=== PATIENT | female | born 1950 | race Caucasian/White ===

== ENCOUNTER → 2017-10-28 | Outpatient (CLI) | payer MEDICARE, OTHER ==
[~2017-10-28] MED LIST: AMITRIPTYLINE H50 M2 PO; ASPIRIN EC325 M1 PO; ATIVAN0.5 MG PO; AVELOX 400 MG400 MG; BENADRYL ALLE12.5 M1 PO; CRESTOR20 MG PO; LOSARTAN-HCTZ1 EAC2 PO; OXYIR5 MG PO; PERCOCET 5-3251 EACH PO; PROTONIX40 M2 PO; SYNTHROID150 MCG PO
--- NOTE | 2017-10-28 13:34 | 2DMMODE ---
[place] [address] 2 D/M-MODE ECHOCARDIOGRAM Name: SAGE DONOVAN Room: [facility]#: [id number] Admission: 10/28/17 Attend Phys: Physician not on s Discharge: Date of : 50 Date of Service: 10/28/17 1334 Report #: [id number] THIS REPORT FOR: //name// APPROVED REPORT Study performed: 10/28/2017 11:39:09 EXAM: Comprehensive 2D, Doppler, and color-flow Echocardiogram Status: routine BSA: 2.11 HR: 70 bpm Other Information Study Quality: Fair Indications Palpitations 2D Dimensions LVEF(%): 70.39 (>50%) IVSd: 12.15 (7-11mm) LVOT Diam: 20.66 (18-24mm) LVDd: 47.02 mm PWd: 10.64 (7-11mm) Ascending Ao: 29.81 (22-36mm) LVDs: 28.30 (25-40mm) Aortic Root: 27.46 mm Saenz's LVEF: 70.39 % Volumes Left Atrial Volume (Systole) LA ESV Index: 16.70 mL/m2 Aortic Valve AoV Peak Beltran.: 1.38 m/s AO Peak Gr.: 7.56 mmHg LVOT Max P.88 mmHg AO Mean Gr.: 3.89 mmHg LVOT Mean P.14 mmHg LVOT Max V: 1.10 m/s AO V2 VTI: 24.85 cm LVOT Mean V: 0.66 m/s ROBYN (VTI): 2.98 cm2 LVOT V1 VTI: 22.07 cm Mitral Valve E/A Ratio: 0.85 MV Decel. Time: 263.14 ms MV E Max Beltran.: 0.64 m/[place] [address] 2 D/M-MODE ECHOCARDIOGRAM Name: VENUSSAGE Jorge Room: [facility]#: [id number] Admission: 10/28/17 Attend Phys: Physician not on s Discharge: Date of : 50 Date of Service: 10/28/17 1334 Report #: [id number] MV PHT: 76.31 ms MVA (PHT): 2.88 cm2 TDI E/Lateral E': 8.00 E/Medial E': 8.00 Medial E' Beltran.: 0.08 m/s Lateral E' Beltran.: 0.08 m/s Pulmonary Valve PV Peak Beltran.: 1.10 m/s PV Peak Gr.: 4.84 mmHg Left Ventricle The left ventricle is normal size. There is normal LV segmental wall motion. Regional wall motion is not well visualized but grossly normal. There is normal left ventricular wall thickness. Left ventricular systolic function is normal. The left ventricular ejection fraction is within the normal range. LVEF is 55-60%. Grade I - abnormal relaxation pattern. Right Ventricle The right ventricle is normal size. The right ventricular systolic function is normal. Atria The left atrium size is normal. The right atrium size is normal. Aortic Valve The aortic valve is normal in structure. Aortic valve is not well visualized. No aortic regurgitation is present. There is no aortic valvular stenosis. Mitral Valve The mitral valve is normal in structure. There is no mitral valve regurgitation noted. No evidence of mitral valve stenosis. Tricuspid Valve The tricuspid valve is normal in structure. There is no tricuspid valve regurgitation noted. Pulmonic Valve The pulmonary valve is normal in structure. There is no pulmonic valvular regurgitation. Great Vessels The aortic root is normal in size. [place] [address] 2 D/M-MODE ECHOCARDIOGRAM Name: SAGE DONOVAN Room: [facility]#: [id number] Admission: 10/28/17 Attend Phys: Physician not on s Discharge: Date of : 50 Date of Service: 10/28/17 1334 Report #: [id number] collapses with >50% inspiration Pericardium There is no pericardial effusion. <Conclusion> LVEF is 55-60%. There is normal LV segmental wall motion. There is no aortic valvular stenosis. No aortic regurgitation is present. Grade I - abnormal relaxation pattern. No evidence of mitral valve stenosis. There is no mitral valve regurgitation noted. <ELECTRONICALLY SIGNED> By: Malocm Nelson MD, FACC 10/28/17 1334 1334 1334 Malcom Nelson MD, FACC /INF
== END ==
LOC: M.CRD 10-21 14:00
DX: R00.2 Palpitations (principal)